=== PATIENT | male | born 1995 | race Caucasian/White ===

== ENCOUNTER 2017-03-03 05:33 | Inpatient (IN) | payer BC ==
[~2017-03-03] VITALS: Ht 190.5 cm; Wt 186.0 kg
[2017-03-03] MEDS ORDERED: ZIPR20INJ IM (05:49)
[2017-03-03] MEDS ORDERED: GEOD60CA PO ×2 (05:49→08:44)
[2017-03-03 08:27] LABS: MEAN CORPUSCULAR HEMOGLOBIN 31.4 pg (27.0-33.0); MEAN CORPUSCULAR HGB CONC 35.8 g/dl (32.0-36.5); MEAN CORPUSCULAR VOLUME 87.8 fl (80.0-96.0); PLATELET COUNT, AUTOMATED 289 10^3/uL (150-450); RED CELL DISTRIBUTION WIDTH 12.2 % (11.5-14.5)
[2017-03-03 08:52] LABS: METHADONE URINE NEGATIVE (NEGATIVE)
[2017-03-03 09:01] LABS: ALBUMIN 4.2 GM/DL (3.2-5.2); ALBUMIN/GLOBULIN RATIO 1.17 (1.00-1.93); ALKALINE PHOSPHATASE 95 U/L (45-117); ALT/SGPT 71 U/L (12-78); ANION GAP 8 MEQ/L (8-16); AST/SGOT 62 U/L (7-37); BILIRUBIN,DIRECT < 0.1 MG/DL (0.0-0.2); BILIRUBIN,TOTAL 0.3 MG/DL (0.2-1.0); BLOOD UREA NITROGEN 14 MG/DL (7-18); CALCIUM LEVEL 8.8 MG/DL (8.5-10.1); CARBON DIOXIDE LEVEL 24 MEQ/L (21-32); CHLORIDE LEVEL 107 MEQ/L (98-107); CREATININE FOR GFR 1.01 MG/DL (0.70-1.30); GLOMERULAR FILTRATION RATE > 60.0 (>60); GLUCOSE, FASTING 105 MG/DL (70-105); POTASSIUM SERUM 4.1 MEQ/L (3.5-5.1); SODIUM LEVEL 139 MEQ/L (136-145); TOTAL PROTEIN 7.8 GM/DL (6.4-8.2)
[2017-03-03] MEDS ORDERED: ZIPR80CA12 PO (11:25)
[2017-03-03] MEDS ORDERED: MOM 30ML SUSPENSION UDC PO PRN (13:30)
[2017-03-03] MEDS ORDERED: ACETAMINOPHEN TAB 650MG DOSE (2X325MG) PO PRN (13:30)
[2017-03-03] MEDS ORDERED: MAALOX 30 ML SUSP *UDC PO PRN (13:30)
[2017-03-03] MEDS: NICOTINE 7 MG/24 HR TRANSDERMAL TD SCH (14:07)
[2017-03-03 18:00] VITALS: BP 136/78
[2017-03-03] MEDS: ZIPRASIDONE 20MG CAPSULE (GEODON) PO SCH (18:10)
[2017-03-03] MEDS: traZODone 50 MG TAB PO PRN (21:17)
[2017-03-04 06:49] VITALS: BP 138/71
[2017-03-04] MEDS: NICOTINE 7 MG/24 HR TRANSDERMAL TD SCH (08:01)
[2017-03-04 12:22] VITALS: BP 122/69
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
[2017-03-04 18:00] VITALS: BP 118/72
[2017-03-04] MEDS: ZIPRASIDONE 20MG CAPSULE (GEODON) PO SCH (18:03)
[2017-03-04] MEDS: traZODone 50 MG TAB PO PRN (21:39)
[2017-03-05 06:00] VITALS: BP 130/86
[2017-03-05] MEDS: NICOTINE 7 MG/24 HR TRANSDERMAL TD SCH (08:13)
--- NOTE | 2017-03-05 11:51 | HPE ---
DATE OF ADMISSION: 03/03/2017 Please refer to psychiatric history and evaluation for further details on this admission. This examination and history is intended for medical issues which may need treatment, followup or consult on this 22-year-old male. ALLERGIES: AMOXICILLIN. PRIMARY CARE PROVIDER: Dr. Rock. SOCIAL HISTORY: He is single. EtOH none. Smoking: He states but he quit that about a week ago as well. Recreational drug use marijuana. Patient was transferred from [facility]. PAST MEDICAL HISTORY: Negative. PAST SURGICAL HISTORY: Tonsillectomy. FAMILY HISTORY: Noncontributory. HOME MEDICATIONS: - ziprasidone 60 mg by mouth daily at bedtime LABORATORY STUDIES: WBC 11.0, hemoglobin 15.5, hematocrit 43.3, platelet count 289. CMP was normal except for slightly elevated AST. Will recheck liver panel. Urine toxicology was positive for cannabinoids. Ten system review was done and was unremarkable. Patient had no physical complaints. PHYSICAL EXAMINATION: 22-year-old cooperative male, no acute distress. Vital signs stable. Patient is 75 inches, weight 186 kg. BMI 51.3. Patient is alert and oriented times three. Pupils equal and reactive to light. Extraocular movements intact. Cornea and sclera clear. Conjunctiva normal. No facial asymmetry. Pharynx, tongue and gums pink and moist. Tongue is midline. Neck is supple, without lymphadenopathy. No thyromegaly. No goiter. Carotids 2+ without bruit. Chest clear to auscultation, without wheeze or retraction. Heart is regular. Abdomen benign. Bowel sounds positive. Genitourinary ()/Rectal: Not done. Extremities show equal strength, full range of motion. No cyanosis, clubbing or edema. Peripheral pulses equal and palpable bilaterally. Skin is warm and dry. IMPRESSION AND PLAN: Psychiatric plan per psychiatry. No acute medical issues. AST slightly elevated. Liver panel ordered for a.m.
[2017-03-05 11:54] VITALS: BP 138/81
[2017-03-05] MEDS: ZIPRASIDONE 20MG CAPSULE (GEODON) PO SCH (17:52)
[2017-03-05 18:00] VITALS: BP 146/84
--- NOTE | 2017-03-05 19:02 | MHIPNPDOC ---
[facility] Progress Note Progress Note DATE OF SERVICE: 03/05/17 HISTORY: As per Dr. Tate: "He is 22 years old. He is single, has a girlfriend. They have been together for the last nine months or so. He has no children. He came in, was feeling increasingly anxious, says began having thoughts and concerns that he may smother his girlfriend with a pillow. Says this came about after they had been talking about adopting children. She indicated apparently that she did not want adopted children. He says she was concerned that they may "insole lip turner to be serial killers" and these are his words, he then began thinking of that, says became afraid that he may be a killer or that he may be a sex predator, these thoughts disturbed him. He says he saw her asleep, there was a pillow there, and he began imagining that he may smother her with a pillow. Says has no intentions of doing so, and was quite disturbed by the thought. He called his mother, and asked to come to the hospital." VITAL SIGNS: See below. NEW TEST RESULTS: N/A CURRENT MEDICATIONS: See below. MENTAL STATUS EXAMINATION: Patient is a 22-year old male, who is alert, cooperative, dressed in personal clothes. Speech: Is Normal in tone, rate and volume. Language skills are Fair. Thought processes including: Intact. Thought content: Anxious thoughts about being hospitalized. Abstract reasoning, and computation: Fair. Description of associations: Good Description of abnormal or psychotic thoughts: Judgment: Poor Insight: Poor. Orientation: Oriented x 3. Recent and remote memory: Fair Attention span and concentration: Fair. Language: Normal. Fund of knowledge: Average. Mood: Anxious. Affect: Anxious DIAGNOSES: 1. Unspecified psychotic disorder. 2. Other specified depressive disorder. 3. Other specified anxiety disorder. 4. Consider substance-induced anxiety disorder. ASSESSMENT: Patient is very anxious, he has been using marijuana, he was at [facility] a year ago and he had used LSD, mushrooms and marijuana. He was told he had a drug induced psychosis. MANAGEMENT PLAN: Will add Atarax 50 mgs. PO Q4HP for anxiety. Changed nicotine patch to 14 gms./24 hrs. TIME SPENT: 20 minutes. Vital Signs Vital Signs Date Time Temp Pulse Resp B/P (MAP) Pulse Ox O2 Delivery O2 Flow Rate FiO2 03/05/17 18:00 98.5 91 18 146/84 (104) 03/03/17 11:23 97 Room Air Current Medications Current Medications Acetaminophen (Tylenol Tab) 650 mg Q6HP PRN PO HEADACHE or DISCOMFORT; Start 03/03/17 at 13:30; Stop 04/02/17 at 13:29 Al Hydrox/Mg Hydrox/Simethicone (Mylanta) 30 ml Q4HP PRN PO HEARTBURN/ INDIGESTION; Start 03/03/17 at 13:30; Stop 04/02/17 at 13:29 Home Med (Med Rec Complete!) ASDIRECTED XX ; Start 03/03/17 at 11:30; Stop 03/03/17 at 11:30; Status DC Magnesium Hydroxide (Milk Of Magnesia) 30 ml DAILYPRN PRN PO CONSTIPATION; Start 03/03/17 at 13:30; Stop 04/02/17 at 13:29 Nicotine (Nicoderm Cq 7 Mg) 1 patch DAILY TD Last administered on 03/05/17 08: 13; Start 03/03/17 at 09:00; Stop 04/02/17 at 08:59 Trazodone HCl (Desyrel) 50 mg QHSP PRN PO INSOMNIA Last administered on 21:39; Start 03/03/17 at 13:30; Stop 04/02/17 at 13:29 Ziprasidone (Geodon) 60 mg DAILY@18 PO Last administered on 03/05/17 17:52; Start 03/03/17 at 18:00; Stop 04/02/17 at 17:59 Allergies Coded Allergies: Amoxicillin (Verified Allergy, Intermediate, 03/03/17) KALPESH LOVE MD Mar 05, 2017 19:02
[2017-03-05] MEDS ORDERED: hydrOXYzine 50 MG TAB PO PRN (19:15)
[2017-03-05 21:00] VITALS: BP 136/80
[2017-03-05] MEDS: traZODone 50 MG TAB PO PRN (22:14)
[2017-03-06 07:00] VITALS: BP 109/60
[2017-03-06] MEDS: NICOTINE 14 MG/24 HR TRANSDERMAL TD SCH (08:24)
--- NOTE | 2017-03-06 12:37 | MHIPNPDOC ---
[facility] Progress Note Progress Note DATE OF SERVICE: 03/06/17 HISTORY: As per Dr. Tate: "He is 22 years old. He is single, has a girlfriend. They have been together for the last nine months or so. He has no children. He came in, was feeling increasingly anxious, says began having thoughts and concerns that he may smother his girlfriend with a pillow. Says this came about after they had been talking about adopting children. She indicated apparently that she did not want adopted children. He says she was concerned that they may "turn machine operator to be serial killers" and these are his words, he then began thinking of that, says became afraid that he may be a killer or that he may be a sex predator, these thoughts disturbed him. He says he saw her asleep, there was a pillow there, and he began imagining that he may smother her with a pillow. Says has no intentions of doing so, and was quite disturbed by the thought. He called his mother, and asked to come to the hospital." VITAL SIGNS: See below. NEW TEST RESULTS: N/A CURRENT MEDICATIONS: See below. MENTAL STATUS EXAMINATION: Patient is a 22-year old male, who is alert, cooperative, dressed in personal clothes, overweight, calm Speech: Is Normal in tone, rate and volume, spontaneous and fluent Language skills are good Thought processes including: Intact. Thought content: Calm thoughts. he feels safe at the [facility] Abstract reasoning, and computation: Good Description of associations: Good Description of abnormal or psychotic thoughts: he hasn't had any of the bizarre thoughts and delusions he had upon admission. Denies SI/ denies HI, denies A/V hallucinations Judgment: Limited Insight: Limited Orientation: Oriented x 3. Recent and remote memory: Fair Attention span and concentration: Fair. Language: Normal. Fund of knowledge: Average. Mood: " I feel better" Affect: congruent with mood DIAGNOSES: 1. Unspecified psychotic disorder. 2. Other specified depressive disorder. 3. Other specified anxiety disorder. 4. Consider substance-induced anxiety disorder. ASSESSMENT: Patient is clamer, he says he feels better, probably because he feels safe at the [facility]. He says he feels better with the dose adjustment of his nicotine patch. MANAGEMENT PLAN: Will continue on the same treatment plan. TIME SPENT: 20 minutes. Vital Signs Vital Signs Date Time Temp Pulse Resp B/P (MAP) Pulse Ox O2 Delivery O2 Flow Rate FiO2 03/06/17 07:00 98.6 71 16 109/60 (76) 03/03/17 11:23 97 Room Air Current Medications Current Medications Acetaminophen (Tylenol Tab) 650 mg Q6HP PRN PO HEADACHE or DISCOMFORT; Start 03/03/17 at 13:30; Stop 04/02/17 at 13:29 Al Hydrox/Mg Hydrox/Simethicone (Mylanta) 30 ml Q4HP PRN PO HEARTBURN/ INDIGESTION; Start 03/03/17 at 13:30; Stop 04/02/17 at 13:29 Home Med (Med Rec Complete!) ASDIRECTED XX ; Start 03/03/17 at 11:30; Stop 03/03/17 at 11:30; Status DC Hydroxyzine HCl (Atarax) 50 mg Q4HP PRN PO ANXIETY; Start 03/05/17 at 19:15; Stop 04/04/17 at 19:14 Magnesium Hydroxide (Milk Of Magnesia) 30 ml DAILYPRN PRN PO CONSTIPATION; Start 03/03/17 at 13:30; Stop 04/02/17 at 13:29 Nicotine (Nicoderm Cq 14mg) 1 patch DAILY TD Last administered on 03/06/17 08: 24; Start 03/06/17 at 09:00; Stop 04/05/17 at 08:59 Nicotine (Nicoderm Cq 7 Mg) 1 patch DAILY TD Last administered on 03/05/17 08: 13; Start 03/03/17 at 09:00; Stop 03/05/17 at 19:07; Status DC Trazodone HCl (Desyrel) 50 mg QHSP PRN PO INSOMNIA Last administered on 22:14; Start 03/03/17 at 13:30; Stop 04/02/17 at 13:29 Ziprasidone (Geodon) 60 mg DAILY@18 PO Last administered on 03/05/17 17:52; Start 03/03/17 at 18:00; Stop 04/02/17 at 17:59 Allergies Coded Allergies: Amoxicillin (Verified Allergy, Intermediate, 03/03/17) KALPESH LOVE MD Mar 06, 2017 12:37
[2017-03-06] MEDS: ZIPRASIDONE 20MG CAPSULE (GEODON) PO SCH (17:56)
[2017-03-06 18:00] VITALS: BP 133/66
[2017-03-06] MEDS: traZODone 50 MG TAB PO PRN (21:12)
[2017-03-07 06:48] VITALS: BP 123/66
[2017-03-07] MEDS: NICOTINE 14 MG/24 HR TRANSDERMAL TD SCH (08:09)
--- NOTE | 2017-03-07 15:36 | MHIPNPDOC ---
[facility] Progress Note Progress Note DATE OF SERVICE: 03/07/17 HISTORY: As per Dr. Tate: "He is 22 years old. He is single, has a girlfriend. They have been together for the last nine months or so. He has no children. He came in, was feeling increasingly anxious, says began having thoughts and concerns that he may smother his girlfriend with a pillow. Says this came about after they had been talking about adopting children. She indicated apparently that she did not want adopted children. He says she was concerned that they may "automatic glove turner and former to be serial killers" and these are his words, he then began thinking of that, says became afraid that he may be a killer or that he may be a sex predator, these thoughts disturbed him. He says he saw her asleep, there was a pillow there, and he began imagining that he may smother her with a pillow. Says has no intentions of doing so, and was quite disturbed by the thought. He called his mother, and asked to come to the hospital." VITAL SIGNS: See below. NEW TEST RESULTS: N/A CURRENT MEDICATIONS: See below. MENTAL STATUS EXAMINATION: Patient is a 22-year old male, who is alert, cooperative, pleasant, dressed in personal clothes Speech: Is Normal in tone, rate and volume, spontaneous and fluent Language skills: Intact Thought processes including: Rational, linear Thought content: anxious thoughts about being discharged Abstract reasoning, and computation: Good Description of associations: Good Description of abnormal or psychotic thoughts: he hasn't had any of the bizarre thoughts and delusions he had upon admission. Denies SI/ denies HI, denies A/V hallucinations Judgment: Improving Insight: Improving Orientation: Oriented x 3. Recent and remote memory: Good Attention span and concentration: Good Language: Normal. Fund of knowledge: Average. Mood: " I feel fine" Affect: congruent with mood DIAGNOSES: 1. Unspecified psychotic disorder. 2. Other specified depressive disorder. 3. Other specified anxiety disorder. 4. Consider substance-induced anxiety disorder. ASSESSMENT: Patient says he thinks he feels anxious about being discharged, he feels bored at [facility] and some of the patients increase his anxiety. he is willing to switch to the Nicotine gum tomorrow, but not now, because he might forget asking for them at the Medication room. MANAGEMENT PLAN: Will continue on the same treatment plan. TIME SPENT: 20 minutes. Vital Signs Vital Signs Date Time Temp Pulse Resp B/P (MAP) Pulse Ox O2 Delivery O2 Flow Rate FiO2 03/07/17 06:48 97.7 95 20 123/66 (85) 03/03/17 11:23 97 Room Air Current Medications Current Medications Acetaminophen (Tylenol Tab) 650 mg Q6HP PRN PO HEADACHE or DISCOMFORT; Start 03/03/17 at 13:30; Stop 04/02/17 at 13:29 Al Hydrox/Mg Hydrox/Simethicone (Mylanta) 30 ml Q4HP PRN PO HEARTBURN/ INDIGESTION; Start 03/03/17 at 13:30; Stop 04/02/17 at 13:29 Home Med (Med Rec Complete!) ASDIRECTED XX ; Start 03/03/17 at 11:30; Stop 03/03/17 at 11:30; Status DC Hydroxyzine HCl (Atarax) 50 mg Q4HP PRN PO ANXIETY Last administered on 19:17; Start 03/05/17 at 19:15; Stop 04/04/17 at 19:14 Magnesium Hydroxide (Milk Of Magnesia) 30 ml DAILYPRN PRN PO CONSTIPATION; Start 03/03/17 at 13:30; Stop 04/02/17 at 13:29 Nicotine (Nicoderm Cq 14mg) 1 patch DAILY TD Last administered on 03/07/17 08: 09; Start 03/06/17 at 09:00; Stop 04/05/17 at 08:59 Nicotine (Nicoderm Cq 7 Mg) 1 patch DAILY TD Last administered on 03/05/17 08: 13; Start 03/03/17 at 09:00; Stop 03/05/17 at 19:07; Status DC Trazodone HCl (Desyrel) 50 mg QHSP PRN PO INSOMNIA Last administered on 21:12; Start 03/03/17 at 13:30; Stop 04/02/17 at 13:29 Ziprasidone (Geodon) 60 mg DAILY@18 PO Last administered on 03/06/17 17:56; Start 03/03/17 at 18:00; Stop 04/02/17 at 17:59 Allergies Coded Allergies: Amoxicillin (Verified Allergy, Intermediate, 03/03/17) KALPESH LOVE MD Mar 07, 2017 15:36
[2017-03-07 18:00] VITALS: BP 139/79
[2017-03-07] MEDS: ZIPRASIDONE 20MG CAPSULE (GEODON) PO SCH (18:29)
[2017-03-07] MEDS: traZODone 50 MG TAB PO PRN (22:57)
[2017-03-08 06:43] VITALS: BP 135/85
[2017-03-08] MEDS ORDERED: TRAZO50TA PO (08:53)
[2017-03-08] MEDS ORDERED: HYDRO50TAB PO (08:53)
[2017-03-08] MEDS ORDERED: GEOD20CA14 PO (08:53)
[2017-03-08] MEDS ORDERED: NICOTINE POLACRILEX 2 MG GUM PO PRN (09:00)
[2017-03-08] MEDS ORDERED: NICO2GUM62 PO (09:02)
--- NOTE | 2017-03-08 18:33 | MHDSPDOC ---
[facility] Discharge Summary Discharge Summary DATE OF ADMISSION: Mar 03, 2017 at 10:51 DATE OF DISCHARGE: Mar 08, 2017 at 10:15 DISCHARGE DIAGNOSES: 1. Unspecified psychotic disorder. 2. Other specified depressive disorder. 3. Other specified anxiety disorder. 4. Consider substance-induced anxiety disorder. REASON FOR ADMISSION: As per Dr. Tate: "He is 22 years old. He is single, has a girlfriend. They have been together for the last nine months or so. He has no children. He came in, was feeling increasingly anxious, says began having thoughts and concerns that he may smother his girlfriend with a pillow. Says this came about after they had been talking about adopting children. She indicated apparently that she did not want adopted children. He says she was concerned that they may "returned materials inspector to be serial killers" and these are his words , he then began thinking of that, says became afraid that he may be a killer or that he may be a sex predator, these thoughts disturbed him. He says he saw her asleep, there was a pillow there, and he began imagining that he may smother her with a pillow. Says has no intentions of doing so, and was quite disturbed by the thought. He called his mother, and asked to come to the hospital." CONSULTANTS INVOLVED: None TREATMENT AND PROGRESS ON THE UNIT : The patient adapted well to the inpatient mental health unit, follow the rules, attended groups, was pleasant and social with staff and peers. He was never violent or aggressive, he was not seen responding to internal stimuli. He had high anxiety levels because he was afraid of the intrusive thoughts he was experiencing and he didn't know how to cope with them. He said attending groups was very helpful for him and he had good response to medications. He explained he has been on Geodon since last year when he spent 25 days@[facility] in [place]. He he has not been homicidal, not suicidal and not psychotic and he expressed he was feeling bored at the inpatient mental health unit and other patients were making him feel more anxious. HOSPITAL COURSE: As above DISCHARGE ASSESSMENT: Patient was not homicidal, not suicidal and not psychotic. He was not in danger to self or others at this time. MENTAL STATUS EXAMINATION ON DISCHARGE: Patient is a 22-year old male, who is alert, cooperative, dressed in personal clothes, pleasant. Speech is spontaneous and fluent. Language skills are good. Thought processes including: Linear, logical. Thought content: Focused on going back to school, quitting drugs. Abstract reasoning, and computation: Good. Description of associations: Good. Description of abnormal or psychotic thoughts: Denies SI/HI, denies A/V hallucinations, denies thought delusions. Judgment: Improved. Insight: Improved. Orientation x 3 Recent and remote memory: Intact. Attention span and concentration: Good Language: Normal Fund of knowledge: Adequate Mood: Euthymic Affect: Euthimic. MEDICATIONS ON DISCHARGE: Ziprasidone Hydrochloride (Geodon) 20 Mg Cap, 60 MG PO DAILY@18 for PSYCHOSIS, # 21 Scheduled PRN Hydroxyzine HCl (Hydroxyzine HCl) 50 Mg Tab, 50 MG PO Q4HP PRN for ANXIETY, #30 Nicotine Polacrilex (Nicorelief) 2 Mg Gum, 2 MG PO Q4HP PRN for NICOTINE WITHDRAWAL, #42 Trazodone HCl (Trazodone HCl) 50 Mg Tab, 50 MG PO QHSP PRN for INSOMNIA, #10 PLAN/FOLLOWUP ARRANGEMENTS: Mental Health Appt 1 * Mental Health [facility] * Therapist Dr Del Cid & therapist Aundrea Fermin The amount of time spent in the coordination of care for this patient was approximately 30 minutes. Vital Signs/I&Os Vital Signs Date Time Temp Pulse Resp B/P (MAP) Pulse Ox O2 Delivery O2 Flow Rate FiO2 03/08/17 06:43 97.7 71 14 135/85 (102) Room Air 03/03/17 11:23 97 Medications Scheduled Ziprasidone Hydrochloride (Geodon) 20 Mg Cap, 60 MG PO DAILY@18 for PSYCHOSIS, # 21 Scheduled PRN Hydroxyzine HCl (Hydroxyzine HCl) 50 Mg Tab, 50 MG PO Q4HP PRN for ANXIETY, #30 Nicotine Polacrilex (Nicorelief) 2 Mg Gum, 2 MG PO Q4HP PRN for NICOTINE WITHDRAWAL, #42 Trazodone HCl (Trazodone HCl) 50 Mg Tab, 50 MG PO QHSP PRN for INSOMNIA, #10 Allergies Coded Allergies: Amoxicillin (Verified Allergy, Intermediate, 03/03/17) KALPESH LOVE MD Mar 08, 2017 18:33
== END 2017-03-08 10:15 | disposition home or self-care (01) | DRG 776 ==
LOC: M ED 05:33 → M ED INP 10:51 → M PSY 11:35
PROVIDERS: ADMIT Psychiatry & Neurology Psychiatry; ATTEND Psychiatry & Neurology Psychiatry
DX: F19.180 Other psychoactive substance abuse with psychoactive substance-induced anxiety disorder (principal); F32.9 Major depressive disorder, single episode, unspecified; F41.9 Anxiety disorder, unspecified; Z88.0 Allergy status to penicillin